=== PATIENT | male | born 1965 | race Caucasian/White ===

== ENCOUNTER 2022-05-31 14:15 | Outpatient (CLI) | payer BC, SELFPAY ==
[2022-05-31 17:33] LABS: Chloride* 104 mmol/L (96-114); Potassium* 4.9 mmol/L (3.6-5.1); Sodium* 141 mmol/L (135-149)
[2022-05-31 17:35] LABS: Cholesterol* 189 mg/dL (90-199)
[2022-05-31 17:36] LABS: Alanine Aminotransferase* 44 U/L (4-50); Blood Urea Nitrogen* 17 mg/dL (7-30); Calcium* 9.1 mg/dL (8.4-10.6); Carbon Dioxide* 31 mmol/L (20-32); Creatinine* 1.1 mg/dL (0.5-1.5); Estimated Glomerular Filt Rate 77 ml/min; Glucose* 94 mg/dL (60-115); Triglycerides* 362 mg/dL (40-149)
[2022-05-31 17:37] LABS: HDL Cholesterol* 30 mg/dL (>=40); LDL Cholesterol Calculated 87 mg/dL (<100)
[2022-05-31 17:59] LABS: PSA Screen* 0.42 ng/mL (0.10-4.00)
== END 2022-05-31 14:16 | disposition home or self-care (01) ==
PROVIDERS: PCP Family Medicine; Visit Provider Family Medicine
DX: Z00.00 Encounter for general adult medical examination without abnormal findings (principal); E78.5 Hyperlipidemia, unspecified; I10 Essential (primary) hypertension; Z12.5 Encounter for screening for malignant neoplasm of prostate
CPT/HCPCS: 80048; 80061; 84153; 84460